=== PATIENT | male | born 1965 | race Caucasian/White ===

== ENCOUNTER 2016-12-20 14:00 | Emergency (ER) | payer BC ==
--- NOTE | ~2016-12-20 | ER ---
PATIENT'S NAME: GUNNER MONTOYA [facility] AGE: 51 Y [address] ROOM: [place] [address] LOCATION: [facility] ADMIT DATE: 12/20/2016 ER/Outpatient Report DISCHARGE DATE: 12/20/2016 FAMILY PHYSICIAN: Lizandro Berry MD ATTENDING PHYSICIAN: Arthur Yousif Time of Arrival: 1400 hours. Time of Evaluation: 1400 hours. CHIEF COMPLAINT: Knee injury. HISTORY OF PRESENT ILLNESS: This is a 51-year-old male, who presents to the ER with a left knee injury that happened about 20 minutes prior to arrival. The patient states he was carrying out the trash when he missed the last step and felt a pop in his knee and he fell to the ground. He states he is having some pain on the lateral aspect of his knee. He did have to crawl up into the house to get his phone, and he did call 911 at that time. The EMS crew did place him in a vacuum splint for support and transported him here to the emergency room. The patient states he does have some discomfort with bearing weight, however, when he was picked up by the ambulance, they state he was unable to touch toe weight bear in order to get in to the cot. The patient denies any neck or back pain. No pelvic pain. No other extremity pain. He denies any left ankle pain as well. He states he has never injured this knee before. ALLERGIES: NO KNOWN ALLERGIES. MEDICATIONS: Please see medication list in nurse's notes. PAST MEDICAL HISTORY: Seasonal allergies, noninsulin-dependent diabetic. PAST SURGICAL HISTORY: Cholecystectomy. SOCIAL HISTORY: He drinks alcohol occasionally. He denies any smoking or drug use. REVIEW OF SYSTEMS: CONSTITUTIONAL: He denies any change in weight or fatigue. MUSCULOSKELETAL: He is complaining of left knee pain. HEMATOLOGIC: No easy bruising or bleeding. PATIENT'S NAME: GUNNER MONTOYA [facility] AGE: 51 Y [address] ROOM: [place] [address] LOCATION: [facility] ADMIT DATE: 12/20/2016 ER/Outpatient Report DISCHARGE DATE: 12/20/2016 FAMILY PHYSICIAN: Lizandro Berry MD ATTENDING PHYSICIAN: Arthur Yousif SKIN: No lesions or rashes. PHYSICAL EXAMINATION: VITAL SIGNS: Height 5 feet 9 inches stated, weight 96.9 kg taken, blood pressure is 159/82, pulse 85, respirations 14, temperature 99.2 degrees tympanically, and saturations 98% on room air. Philip Coma Score is 15. GENERAL: An alert, anxious well-developed male, in mild distress. LUNGS: Clear to auscultation bilaterally. No wheezes or crackles. HEART: Regular rate and rhythm. EXTREMITIES: No clubbing or cyanosis. The patient will not allow me to do range of motion with the left knee secondary to pain. With palpation, he does have some pain on the upper lateral portion of his knee. He has no tenderness over the proximal tib-fib area. No tenderness over his patella. He has a little bit of tenderness in the muscular aspects of his quadriceps. No ecchymosis is seen. He does have some palpable swelling noted. LABORATORY DATA: None. X-RAYS: X-rays of the left knee showed no obvious fracture, and this is also reviewed by Dr. Yousif. IMPRESSION: Left knee injury. ASSESSMENT AND PLAN: We will place the patient in a knee immobilizer for support. He needs to ambulate with crutches. He needs to ice and elevate the leg. He was given some ibuprofen here in the emergency room for his pain, and he may continue Tylenol or ibuprofen at home as needed for pain. I would like him to follow up with his primary care physician or orthopedic of choice in the early next week for followup care. The patient understands and agrees with care. JAIRO MCLEAN PA-C FOR MD ASHELY SIERRA/eleanor /[id number] d: 12/20/164 t: 12/24/16 0711, OUTPATIENT REPORT
== END 2016-12-20 15:06 | disposition disaster alternative care site (69) ==
LOC: GACC 14:00
PROC: 2W3RX1Z Immobilization of Left Lower Leg using Splint (ICD-10-PCS; principal; 2016-12-20)
DX: S89.92XA Unspecified injury of left lower leg, initial encounter (principal); E11.9 Type 2 diabetes mellitus without complications; Z90.49 Acquired absence of other specified parts of digestive tract; Z79.84 Long term (current) use of oral hypoglycemic drugs; Z79.899 Other long term (current) drug therapy; W10.9XXA Fall (on) (from) unspecified stairs and steps, initial encounter

== ENCOUNTER → 2016-12-20 | Outpatient (CLI) | payer BC | END | disposition disaster alternative care site (69) | LOC: GAMB 13:40 | DX: S89.92XA Unspecified injury of left lower leg, initial encounter (principal); M79.662 Pain in left lower leg; M25.562 Pain in left knee; W10.9XXA Fall (on) (from) unspecified stairs and steps, initial encounter | CPT/HCPCS: A0425; A0429 ==